=== PATIENT | male | born 1940 | race Two or more races ===

== ENCOUNTER 2016-06-28 18:13 | Emergency (ER) | payer MEDICAID, OTHER ==
[~2016-06-28] VITALS: Ht 175.3 cm; Wt 68.5 kg
[~2016-06-28 18:13] MED LIST: ZITHROMAX250 MG ORAL; [UNRECOGNIZED DRUG - OTHER] ORAL; [UNRECOGNIZED DRUG - OTHER] PO
[2016-06-28] MEDS ORDERED: CIALIS5 MG PO (18:37)
[2016-06-28] MEDS ORDERED: DIOVAN160 MG ORAL (18:37)
[2016-06-28] MEDS ORDERED: CAPTOPRIL50 MG PO (18:37)
[2016-06-28] MEDS ORDERED: VYTORIN 10-401 EACH ORAL (18:37)
[2016-06-28] MEDS ORDERED: PROSCAR5 MG ORAL (18:37)
[2016-06-28] MEDS ORDERED: ASPIR 8181 MG ORAL (18:37)
[2016-06-28] MEDS ORDERED: HYDROCHLOROTHIA25 MG ORAL (18:40)
[2016-06-28] MEDS ORDERED: PLAVIX75 MG ORAL (18:40)
[2016-06-28] MEDS ORDERED: ZOCOR40 MG ORAL (18:40)
[2016-06-28] MEDS ORDERED: NORVASC5 MG ORAL (18:40)
[2016-06-28] MEDS ORDERED: EDARBI40 MG ORAL (18:40)
[2016-06-28] MEDS ORDERED: ZETIA10 MG ORAL (18:40)
[2016-06-28 18:45] VITALS: BP 188/96
[2016-06-28 19:51] LABS: BASOPHILS % (AUTO) 1.1 % (0.0-2.0); EOSINOPHILS % (AUTO) 3.3 % (0.0-3.0); LYMPHOCYTES % (AUTO) 46.9 % (20.0-45.0); MEAN CORPUSCULAR HEMOGLOBIN 30.5 PG (27.0-31.0); MEAN CORPUSCULAR HGB CONC 33.9 G/DL (32.0-36.0); MEAN CORPUSCULAR VOLUME 90 FL (80-99); MEAN PLATELET VOLUME 6.5 FL (6.5-10.1); MONOCYTES % (AUTO) 9.5 % (1.0-10.0); NEUTROPHILS % (AUTO) 39.2 % (45.0-75.0); PLATELET COUNT 216 K/UL (150-450); RED BLOOD COUNT 4.96 M/UL (4.70-6.10); RED CELL DISTRIBUTION WIDTH 12.4 % (11.6-14.8); WHITE BLOOD COUNT 6.5 K/UL (4.8-10.8)
[2016-06-28 20:07] LABS: TROPONIN I < 0.30 ng/mL (<=0.30)
[2016-06-28 20:10] LABS: ALANINE AMINOTRANSFERASE 25 U/L (3-41); ANION GAP 14 (5-15); ASPARTATE AMINO TRANSFERASE 24 U/L (5-40); CALCIUM 9.8 mg/dL (8.6-10.2); CARBON DIOXIDE 29 mEQ/L (20-30); CHLORIDE 98 mEQ/L (98-107); CREATININE 1.3 mg/dL (0.7-1.2); HEMOLYSIS 9; POTASSIUM 3.7 mEQ/L (3.4-4.9); SODIUM 141 mEQ/L (135-145); TOTAL PROTEIN 6.9 g/dL (6.6-8.7)
[2016-06-28 20:20] LABS: CKMB 1.9 ng/mL (< 6.7)
--- NOTE | 2016-06-28 22:39 | Emergency Room Report ---
History of Present Illness General Chief Complaint: Pain Source: Patient, Family Member Present Illness HPI 75 YO M presents with son with bilateral upper thigh/groin pain for one week after bending/crouching over to do ?yardwork. Feels similar to pain he had last year when he was found to have clots in both lower extremity arteries and needed angioplasty and stent placement by Anita Mina and [facility]. Patient reports acute worsening of pain with walking that also feels similar to last year. Patient tried to go thru [facility] ER, was told of 6 hour wait so came here. Son also endorses that his brother thinks patient may have AAA? but denies chest pain, SOB. Allergies: Coded Allergies: No Known Allergies (Unverified , 05/22/14) Patient History Past Medical History: HTN, other - PAD Past Surgical History: other - PAD angioplasty Pertinent Family History: none Social History: Denies: alcohol use, drug use, smoking Immunizations: UTD Reviewed Nursing Documentation: PMH: Agreed, PSxH: Agreed Nursing Documentation-PMH Past Medical History: No History, Except For Hx Hypertension: Yes Hx Cerebrovascular Accident: Yes - 1993 (no residuals) Review of Systems All Other Systems: negative except mentioned in HPI Physical Exam Vital Signs Date Time Temp Pulse Resp B/P Pulse Ox O2 Delivery O2 Flow Rate FiO2 06/28/16 18:25 98.4 71 18 197/96 98 Sp02 EP Interpretation: reviewed, normal General Appearance: normal inspection, well appearing, no apparent distress, alert, GCS 15, non-toxic Head: normocephalic, atraumatic Eyes: bilateral eye EOMI, bilateral eye PERRL ENT: normal ENT inspection, hearing grossly normal, normal voice Neck: normal inspection, full range of motion, supple, no bony tend Respiratory: normal inspection, chest non-tender, lungs clear, normal breath sounds, no rhonchi, no respiratory distress, no retraction, no accessory muscle use, no wheezing Cardiovascular #1: regular rate, rhythm, no edema Gastrointestinal: normal inspection, normal bowel sounds, non tender, soft, no guarding, no hernia Musculoskeletal: normal inspection, back normal, normal range of motion, non- tender, no calf tenderness, Michaela's Sign negative Neurologic: normal inspection, alert, oriented x3, responsive, warpman III-XII nml as tested, motor strength/tone normal, speech normal Psychiatric: normal inspection, judgement/insight normal, mood/affect normal Skin: normal inspection, normal color, no rash Medical Decision Making Diagnostic Impression: Primary Impression: Claudication of both lower extremities ER Course 75 YO M with claudication acute on chronic. VSS. Afebrile. ECG is first degree AV block. Trop 0 No Leuks. H&H stable. 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 Recommends followup with Dr Lovell/Leopoldo outpatient after getting ABIs; needs intervention but not urgently. No need for transfer. I informed son/patient of findings and they will followup No other acute issue in ED DC home EKG Diagnostic Results Rate: other - 1st degree AV block Rhythm: NSR ST Segments: no acute changes ASA given to the pt in ED: No Rhythm Strip Diag. Results EP Interpretation: yes Rate: 74 Rhythm: NSR, no PVC's, no ectopy Chest X-Ray Diagnostic Results EP Interpretation: Yes Findings: no consolidation, no effusion, no pneumothorax Number of Views: 1 Last Vital Signs Date Time Temp Pulse Resp B/P Pulse Ox O2 Delivery O2 Flow Rate FiO2 06/28/16 18:45 98.4 65 18 188/96 98 Status: improved Disposition: HOME, SELF-CARE Referrals: NON PHYSICIAN (PCP) MARCI BARRON M.D. Jun 28, 2016 22:39
[2016-06-28 22:45] VITALS: BP 156/78
--- NOTE | 2016-06-29 11:14 | Diagnostic Imaging Report ---
Indication: PAIN Technique: One view of the chest Comparison: Findings: Lungs and pleural spaces are clear. Heart size is normal. Better inspiration on the current exam Impression: No acute process
--- NOTE | 2016-07-07 13:42 | Cardiology Report ---
APPROVED REPORT EKG Measurement Heart [id number] Sinus rhythm with 1st degree AV block Otherwise normal ECG
--- NOTE | 2016-07-12 08:57 | Diagnostic Imaging Report ---
Indication: Bilateral lower extremity pain Technique: IV administration nonionic contrast. Arterial phase spiral acquisitions obtained through the chest, abdomen, pelvis, and bilateral lower extremities to the levels of the distal thighs. Multiplanar and 3-D reconstructions were generated. Total dose length product 1153 mGycm. CTDIvol(s) 8, 32, 11 mGy. Radiation dose was minimized using automated exposure control Comparison: None Findings: Contrast opacification is suboptimal, and significant abnormalities could be missed. Thoracic aorta: There is no evidence of thoracic aortic aneurysm or dissection. There is some mural atherosclerotic plaquing demonstrated. There is classic branching anatomy of the great neck vessels. Abdominal aorta: There is no evidence of abdominal aortic aneurysm or dissection. There is mural hard and soft plaque which does not result in any significant stenosis. Patent celiac axis, superior and inferior mesenteric arteries, no significant stenosis. Single renal arteries bilaterally, and no definite significant stenosis, although significant stenosis on the right is impossible to confidently exclude. Right lower extremity: There is ectasia bordering on fusiform aneurysmal dilatation of the distal common iliac artery. Mural soft plaque or thrombus narrows the lumen by about 60%, although given the degree of dilatation probably does not result in any hemodynamic significance. The external iliac artery is patent without significant stenosis. The common femoral and profunda femoral arteries are patent without significant stenosis. There is a stent beginning at the origin of the superficial femoral artery and traversing into the popliteal artery beyond the abductor canal. Given the poor quality contrast opacification, the patency of this is indeterminate, although suspect is patent. The popliteal artery is patent. Left lower extremity: The left common iliac artery is ectatic but not frankly aneurysmal. The left external iliac artery is mildly ectatic. No significant stenosis is demonstrated. Be common femoral and profunda femoral arteries are patent without significant stenosis. A stent extends from the origin of the. Superficial femoral artery to the level of the popliteal artery just distal to the abductor hiatus. Given the poor quality contrast opacification, patency of this is indeterminate although of low attenuation of the center suggests that the stent is occluded. If so, there is distal reconstitution of the popliteal artery just beyond the stent, and visualized portions of the proximal popliteal artery are patent and nonstenotic. Nonvascular chest: There is a noncalcified 4 mm nodule in the left lung apex. Is minimal nonspecific groundglass opacity in the right costophrenic sulcus, probably just compressive atelectatic change. Some atelectasis is seen in the inferior lingula. The lungs are otherwise clear. No infiltrates, effusions, or congestion. The heart size is upper limits of normal. No pericardial effusion. No mediastinal hilar mass or adenopathy. There is a small sliding-type hiatal hernia. The esophagus is otherwise unremarkable. No axillary or chest wall mass or adenopathy. Nonvascular abdomen and pelvis: The gallbladder is contracted. The liver, bile ducts, pancreas, spleen, adrenals, kidneys are unremarkable. No retroperitoneal or mesenteric mass or adenopathy. No pelvic mass or adenopathy. The prostate is mildly enlarged. The bladder is unremarkable. The appendix is normal. There is considerable retained stool within the colon. No evidence of diverticulosis or diverticulitis. There are small fat-containing bilateral inguinal hernias. There is a small left scrotal hydrocele. No free or loculated intraperitoneal air or fluid is demonstrated. There is a tiny fat-containing umbilical hernia. The bones are unremarkable. Impression: No evidence of thoracic or abdominal aortic aneurysm or dissection. Ther -- e is some atherosclerotic disease of the abdominal aorta Borderline fusiform aneurysmal dilatation of the right common iliac artery, with some mural thrombus or soft plaque, no evidence of dissection. No evidence of significant stenosis Entirety of the right superficial femoral artery ascending the popliteal artery is stented. Stent probably patent. Distal runoff distal to the proximal popliteal artery is not imaged No significant suprainguinal stenosis on the left. The entirety of the left superficial femoral artery is stented, extending into the popliteal artery. This appears to be occluded, with reconstitution of the popliteal artery just distal to the stented segment. The proximal popliteal artery that appears to be patent. The distal runoff distal to the possible popliteal artery is not imaged Mild prostatomegaly Incidental findings as noted, including tiny fat-containing umbilical and bilateral inguinal hernias, small left scrotal hydrocele small sliding-type hiatal hernia, inferior lingular atelectasis and nonspecific right basilar pulmonary groundglass opacities The above findings are in agreement with the preliminary interpretation provided overnight by Dr. Henderson Noncalcified 4 mm nodule in the left lung apex. If there are significant risk factors for lung carcinoma, then further evaluation with chest CT in 6-12 months is recommended. If there are no significant risk factors for lung carcinoma, no further imaging is necessary. This finding was not described on the preliminary report, but was discussed by phone with Dr. Cisneros in the emergency room at the time of interpretation The CT scanner at [facility] is accredited by the [employer] and the scans are performed using protocols designed to limit radiation exposure to as low as reasonably achievable to attain images of sufficient resolution adequate for diagnostic evaluation.
== END 2016-06-28 22:45 | disposition home or self-care (01) ==
LOC: EMR 19:10
DX: I74.3 Embolism and thrombosis of arteries of the lower extremities (principal); I72.3 Aneurysm of iliac artery; I10 Essential (primary) hypertension; I44.0 Atrioventricular block, first degree; Z86.73 Personal history of transient ischemic attack (TIA), and cerebral infarction without residual deficits
CPT/HCPCS: 36415; 71010; 71275; 72191; 74175; 80053; 82550; 82553; 84484; 85025; 93005; 99283; Q9967